=== PATIENT | male | born 1980 | race African-American/Black ===

== ENCOUNTER 2016-10-10 23:16 | Emergency (ER) | payer MEDICAID ==
[~2016-10-10] VITALS: Ht 180.3 cm; Wt 86.1 kg
[2016-10-10 23:18] VITALS: BP 119/81
[2016-10-10] MEDS ORDERED: PROPARACAINE OPHTH 0.5%, 15ML ONE (23:30)
[2016-10-10] MEDS ORDERED: FLUORESCEIN OPHTHALMIC 1 MG STRIP ONE (23:30)
[2016-10-11] MEDS ORDERED: TOBRAMYCIN OPHTH 5ML OP ONE
== END 2016-10-11 01:08 | disposition home or self-care (01) ==
LOC: ED 23:59
DX: H10.022 Other mucopurulent conjunctivitis, left eye (principal); L03.213 Periorbital cellulitis
CPT/HCPCS: 70480

== ENCOUNTER 2016-12-18 02:43 | Inpatient (IN) | payer MEDICAID ==
[~2016-12-18] VITALS: Ht 172.7 cm; Wt 85.4 kg
[2016-12-18] MEDS ORDERED: HYDROmorphone 2 MG/ML, 1ML ONE (03:10)
[2016-12-18] MEDS ORDERED: LIDOCAINE 1%, 20ML ONE (03:10)
[2016-12-18] MEDS ORDERED: ONDANSETRON ODT 4 MG ONE (03:21)
[2016-12-18] MEDS ORDERED: SULFAMETH./TRIMETHOPRIM DS 800MG/160MG TABLET ONE (03:21)
[2016-12-18] MEDS ORDERED: CEPHALEXIN 500 MG CAPSULE ONE (03:21)
[2016-12-18] MEDS: SULFAMETH./TRIMETHOPRIM DS 800MG/160MG TABLET PO ONE ×2 (03:23→03:30)
[2016-12-18] MEDS: CEPHALEXIN 500 MG CAPSULE PO ONE ×2 (03:23→03:30)
[2016-12-18] MEDS ORDERED: HYDROmorphone 1 MG/ML, 1ML IM ONE (03:30)
[2016-12-18] MEDS ORDERED: LIDOCAINE 1%, 20ML SQ ONE (03:30)
[2016-12-18] MEDS ORDERED: HYDROmorphone 2 MG/ML, 1ML IM ONE (03:30)
[2016-12-18] MEDS ORDERED: ONDANSETRON ODT 4 MG PO ONE (03:30)
[2016-12-18] MEDS ORDERED: HYDROmorphone 1 MG/ML, 1ML IV ONE (04:00)
[2016-12-18] MEDS ORDERED: CLINDAMYCIN PMX 900MG/50ML 50 ML IVPB ONE (04:00)
[2016-12-18] MEDS ORDERED: CLINDAMYCIN PMX 900MG/50ML 50 ML ONE (04:22)
[2016-12-18 04:37] LABS: HEMATOCRIT 40.1 % (39.2-51.8); HEMOGLOBIN 13.4 g/dL (13.7-18.0); WHITE BLOOD COUNT 14.8 x10^3/uL (3.4-10)
[2016-12-18 04:54] LABS: ASPARTATE AMINO TRANSFERASE 54 U/L (15-37); BLOOD UREA NITROGEN 8 mg/dL (7-18)
[2016-12-18] MEDS ORDERED: SODIUM CHLORIDE 0.9% 1,000ML IVBOLUS ONE (05:30)
[2016-12-18 05:32] LABS: DIFF TOTAL CELLS COUNTED 100 CELL DIFF
[2016-12-18 05:33] LABS: VERIFY COUNTS? YES
[2016-12-18] MEDS ORDERED: ACETAMINOPHEN 325 MG TABLET PO PRN (06:00)
[2016-12-18] MEDS ORDERED: ONDANSETRON 2MG/ML, 2ML IVPush PRN (06:00)
[2016-12-18] MEDS ORDERED: VANCOMYCIN PER PHARMACY MC PRN (06:00)
[2016-12-18] MEDS ORDERED: OXYcodone IR 5MG TABLET PO PRN (06:00)
[2016-12-18 06:03] VITALS: BP 117/72
[2016-12-18] MEDS ORDERED: PHARMACOKINETIC MONITORING MC PRN (06:30)
[2016-12-18 08:38] VITALS: BP 147/86
[2016-12-18] MEDS ORDERED: MORPHINE SULFATE 4 MG/ML, 1ML ONE ×2 (09:58→14:17)
[2016-12-18] MEDS: morphine SULFATE 10 MG/ML, 1ML IVPush PRN ×3 (10:02→14:19)
[2016-12-18] MEDS: VANCOMYCIN 1,800 MG in SODIUM CHLORIDE 0.9% 250 ML IV SCH ×2 (10:18→21:26)
[2016-12-18] MEDS: ENOXAPARIN 40 MG/0.4 ML SQ SCH (10:23)
[2016-12-18] MEDS: LACTATED RINGERS 1,000 ML IV SCH ×2 (14:00→17:22)
[2016-12-18 14:30] VITALS: BP 114/75
[2016-12-18] MEDS: ERTAPENEM 1 GM in SODIUM CHLORIDE 0.9% 50 ML IV SCH (15:02)
[2016-12-18 19:10] VITALS: BP 128/80
[2016-12-19] MEDS: morphine SULFATE 10 MG/ML, 1ML IVPush PRN ×4 (00:29→19:54)
[2016-12-19 01:22] VITALS: BP 140/79
[2016-12-19] MEDS: ERTAPENEM 1 GM in SODIUM CHLORIDE 0.9% 50 ML IV SCH (02:08)
[2016-12-19] MEDS: LACTATED RINGERS 1,000 ML IV SCH ×2 (02:08→14:08)
[2016-12-19 04:55] LABS: HEMATOCRIT 37.4 % (39.2-51.8); HEMOGLOBIN 12.4 g/dL (13.7-18.0); WHITE BLOOD COUNT 10.8 x10^3/uL (3.4-10)
[2016-12-19 05:06] LABS: ASPARTATE AMINO TRANSFERASE 46 U/L (15-37); BLOOD UREA NITROGEN 11 mg/dL (7-18)
[2016-12-19] MEDS: ENOXAPARIN 40 MG/0.4 ML SQ SCH (05:50)
[2016-12-19] MEDS: VANCOMYCIN 1,800 MG in SODIUM CHLORIDE 0.9% 250 ML IV SCH ×2 (10:46→22:11)
[2016-12-19 13:37] VITALS: BP 133/77
[2016-12-19] MEDS: NICOTINE 14MG/24 HR PATCH.TD24 TD SCH (14:49)
[2016-12-19 19:22] VITALS: BP 132/74
[2016-12-19] MEDS ORDERED: MORPHINE SULFATE 4 MG/ML, 1ML ONE (19:50)
[2016-12-20] MEDS: LACTATED RINGERS 1,000 ML IV SCH ×2 (01:00→10:00)
[2016-12-20 01:21] VITALS: BP 124/76
[2016-12-20] MEDS: ERTAPENEM 1 GM in SODIUM CHLORIDE 0.9% 50 ML IV SCH (02:35)
[2016-12-20] MEDS ORDERED: MORPHINE SULFATE 4 MG/ML, 1ML ONE (02:37)
[2016-12-20] MEDS: morphine SULFATE 10 MG/ML, 1ML IVPush PRN ×4 (02:38→21:55)
[2016-12-20 07:35] VITALS: BP 127/78
[2016-12-20] MEDS: ENOXAPARIN 40 MG/0.4 ML SQ SCH (10:32)
[2016-12-20] MEDS: VANCOMYCIN 1,800 MG in SODIUM CHLORIDE 0.9% 250 ML IV SCH ×2 (10:32→21:55)
[2016-12-20 14:45] VITALS: BP 135/88
[2016-12-20] MEDS: NICOTINE 14MG/24 HR PATCH.TD24 TD SCH (15:01)
[2016-12-20] MEDS ORDERED: ONDANSETRON 2MG/ML, 2ML IVPush PRN (18:30)
[2016-12-20] MEDS ORDERED: PHARMACOKINETIC MONITORING MC PRN (18:30)
[2016-12-20] MEDS ORDERED: OXYcodone IR 5MG TABLET PO PRN (18:30)
[2016-12-20] MEDS ORDERED: ACETAMINOPHEN 325 MG TABLET PO PRN (18:30)
[2016-12-20 18:36] VITALS: BP 109/66
[2016-12-21 01:38] VITALS: BP 123/77
[2016-12-21] MEDS: ERTAPENEM 1 GM in SODIUM CHLORIDE 0.9% 50 ML IV SCH (01:59)
[2016-12-21] MEDS: morphine SULFATE 10 MG/ML, 1ML IVPush PRN (04:51)
[2016-12-21 07:39] VITALS: BP 110/67
[2016-12-21] MEDS: VANCOMYCIN 1,800 MG in SODIUM CHLORIDE 0.9% 250 ML IV SCH (09:26)
[2016-12-21] MEDS: ENOXAPARIN 40 MG/0.4 ML SQ SCH (09:26)
[2016-12-21] MEDS ORDERED: OXYC5TAB3 PO (13:07)
[2016-12-21] MEDS ORDERED: AMOX1TAB64 PO (13:16)
[2016-12-21 14:00] VITALS: BP 127/78
== END 2016-12-21 18:00 | disposition home or self-care (01) | DRG 854 ==
LOC: ED 03:26 → EDIP 05:08 → 3NW 06:01
PROVIDERS: ADMIT Hospitalist; ATTEND Family Medicine
PROC: 0J990ZZ Drainage of Buttock Subcutaneous Tissue and Fascia, Open Approach (ICD-10-PCS; principal; 2016-12-19)
DX: A41.9 Sepsis, unspecified organism (principal); E87.1 Hypo-osmolality and hyponatremia; L02.31 Cutaneous abscess of buttock; L03.317 Cellulitis of buttock; F11.10 Opioid abuse, uncomplicated; F17.200 Nicotine dependence, unspecified, uncomplicated; F19.90 Other psychoactive substance use, unspecified, uncomplicated
CPT/HCPCS: 36415; 80053; 83605; 83735; 84100; 85025; 87040; 87070; 87205; 96361; 96372; J1170; J1335; J1650; J2405; J3370; Q0162; J2270; J7030; J7050; J7120

== ENCOUNTER 2017-03-12 17:04 | Emergency (ER) | payer OTHER, MEDICAID ==
[~2017-03-12] VITALS: Ht 180.3 cm; Wt 82.0 kg
[~2017-03-12 17:04] MED LIST: AMOX1TAB64 PO; OXYC5TAB3 PO
[2017-03-12] MEDS ORDERED: PROPOFOL 10 MG/ML, 20ML ONE ×2 (18:06→18:11)
[2017-03-12 18:29] VITALS: BP 113/70
[2017-03-12] MEDS ORDERED: SODIUM CHLORIDE FLUSH 10ML SYR IVF ONE (18:30)
[2017-03-12] MEDS ORDERED: PROPOFOL 10 MG/ML, 20ML IVPush ONE (18:30)
[2017-03-12] MEDS ORDERED: SODIUM CHLORIDE 0.9% 1,000ML IVBOLUS ONE (18:30)
== END 2017-03-12 19:14 | disposition home or self-care (01) ==
LOC: ED 18:46
DX: F11.10 Opioid abuse, uncomplicated (principal); F17.200 Nicotine dependence, unspecified, uncomplicated; R10.9 Unspecified abdominal pain
CPT/HCPCS: 74000; 99152; 99153; 99285; J2704; J7030

== ENCOUNTER 2019-11-18 10:33 | Emergency (ER) | payer MEDICAID, OTHER ==
[~2019-11-18] VITALS: Ht 180.3 cm; Wt 85.0 kg
[~2019-11-18 10:33] MED LIST changes: +ACET325T14 PO; +DAPT500V6 IVPB; +DIPH50CA PO
[2019-11-18] MEDS ORDERED: SODIUM CHLORIDE FLUSH 10ML SYR IVF ONE (11:00)
[2019-11-18 12:23] VITALS: BP 142/95
--- NOTE | 2019-11-18 12:50 | NUR ---
Patient left prior to DC instructions. Patient ambulatory with steady gait.
== END 2019-11-18 12:52 | disposition home or self-care (01) ==
LOC: ED 12:23
DX: S39.012A Strain of muscle, fascia and tendon of lower back, initial encounter (principal); S33.5XXA Sprain of ligaments of lumbar spine, initial encounter; M54.31 Sciatica, right side; X58.XXXA Exposure to other specified factors, initial encounter; Y93.89 Activity, other specified; Y92.89 Other specified places as the place of occurrence of the external cause; Y99.8 Other external cause status
CPT/HCPCS: 72110; 99283